=== PATIENT | male | born 1985 | race Caucasian/White ===

== ENCOUNTER 2016-10-27 07:40 | Emergency (ER) | payer BC ==
[2016-10-27 07:44] VITALS: RESP 16
--- NOTE | 2016-10-27 07:59 | EDPHY ---
H & P Stated Complaint: KNOWN L INGUINAL HERNIA, INCREASING PAIN, BRIGHT RED BLOOD IN STOOL Time Seen by Provider: 10/27/16 07:51 HPI/ROS: CHIEF COMPLAINT: Bloody stool. HISTORY OF PRESENT ILLNESS: The patient is a 31 year old male with known left inguinal hernial who presents with bloody stool. Patient was seen at [facility] yesterday for concerns regarding swelling and potential hernia in the left inguinal region. He was advised that he needed to follow up with the primary care physician, obtain an ultrasound, and schedule surgery as needed. Patient was advised that if he developed any significant increase in pain, or bloody stools he should be seen immediately. This morning the patient reports having a bowel movement and noticing blood on the tissue paper afterwards. No vomiting, no generalized abdominal pain, no fever, no diarrhea. Bowel movement was somewhat painful. Patient does have a history of anal fissures. No upper abdominal pain, reflux, or history of upper GI bleeding. No fever, chills, chest pain, shortness of breath, palpitations, vomiting, diarrhea, urinary complaints, headache, lightheadedness. REVIEW OF SYSTEMS: Aside from elements discussed in the HPI, a comprehensive 10-point review of systems was reviewed and is negative. PAST MEDICAL HISTORY: Inguinal hernia. SOCIAL HISTORY: Patient smokes. Newly arrived to [place]. No physician in the area. VITAL SIGNS: Reviewed by me GENERAL: Well-developed, well-nourished, resting comfortably in no respiratory distress. HEENT: Atraumatic. Eyes: No icterus, no injection. Mouth: moist mucous membranes. No erythema or lesions. Neck: supple with no adenopathy. LUNGS: Clear to auscultation bilaterally, no wheezes, rhonchi or rales. CARDIAC: Regular rate and rhythm, no rubs, murmurs or gallops. ABDOMEN: Soft, very mild tenderness in the left inguinal region. No guarding or rebound. Nondistended, bowel sounds normal. : The slight fullness in the left inguinal region appreciated. No definitive hernia palpated. Normal testes. No tenderness or swelling. RECTAL: Small amount of dry blood around the anus. Loose brown stool on the glove. No hemorrhoids. BACK: No CVA tenderness. EXTREMITIES: No trauma. No edema. Range of motion is normal throughout. NEURO: Alert and oriented, grossly nonfocal. SKIN: Warm and dry, no rash. PSYCHIATRIC: Normal mentation, no agitation. Portions of this note were transcribed by a medical payment poster. I personally performed a history, physical exam, medical decision making, and confirmed accuracy of information the transcribed note. - Personal History Current Tetanus/Diphtheria Vaccine: Yes Current Tetanus Diphtheria and Acellular Pertussis (TDAP): Yes - Medical/Surgical History Hx Asthma: No Hx Chronic Respiratory Disease: No Hx Diabetes: No Hx Cardiac Disease: No Hx Renal Disease: No Hx Cirrhosis: No Hx Alcoholism: No Hx HIV/AIDS: No Hx Splenectomy or Spleen Trauma: No Other PMH: PMH- HERNIA - Social History Smoking Status: Current every day smoker Constitutional: Initial Vital Signs Temperature (C) 36.4 C 10/27/16 07:41 Heart Rate 92 10/27/16 07:41 Respiratory Rate 16 10/27/16 07:41 Blood Pressure 143/81 H 10/27/16 07:41 O2 Sat (%) 98 10/27/16 07:41 O2 Delivery Mode Room Air Allergies/Adverse Reactions: Penicillins Allergy (Verified 10/27/16 07:42) Home Medications: Medication Instructions Recorded Hydrocortisone Acetate [Anucort-Hc] 25 mg RC BID PRN #10 supp.rect 10/27/16 Medical Decision Making - Diagnostics Imaging: Results: An ultrasound scan of the abdomen was obtained. The results of the study were reported to me: Inguinal hernia in the left that appears to contain some bowel loop as well as mesentery. This is reducible with pressure by the probe. 2. The neck of the inguinal hernia measures about 5 mm in diameter. The study was read by Dr. West. I discussed the results of the study with the patient. ED Course/Re-evaluation: Stool was sent for occult blood testing. Ultrasound was ordered of the patient' s hernia. Patient's ultrasound demonstrates inguinal hernia with peristalsing bowel present in the hernia. Hernia is easily reducible with the probe. The neck of hernia is 5 mm. Hernia does increase with Valsalva. 10:20 a.m.: I consulted Dr. Patten who will followup with the patient. Patient was given appointment of tomorrow at 2:[address] Taylor Patten. Discussed results of the ultrasound the patient. He will follow up tomorrow as directed. He understands reasons to return including increase in the hernia size, pain, inability to reduce the hernia, vomiting, fevers. We also discussed the patient's heme-positive stools. I see no hemorrhoids or fissures , patient's history does not suggest upper GI hemorrhage. Abdomen is soft and benign. Patient was given Anusol HC suppositories and instructed to follow up with Gastroenterology. Differential Diagnosis: Differential diagnoses for the patient's symptom complex was considered including but not limited to incarcerated hernia, strangulated hernia, inguinal hernia, lower GI bleeding,. - Data Points Laboratory Results: Laboratory Results 10/27/16 07:55 10/27/16 07:55 10/27/16 10/27/16 10/27/16 07:55 07:55 07:55 WBC 6.71 10^3/uL 10^3/uL (3.80-9.50) RBC 5.18 10^6/uL 10^6/uL (4.40-6.38) Hgb 15.8 g/dL g/dL (13.7-17.5) Hct 47.6 % % (40.0-51.0) MCV 91.9 fL fL (81.5-99.8) MCH 30.5 pg pg (27.9-34.1) MCHC 33.2 g/dL g/dL (32.4-36.7) RDW 13.2 % % (11.5-15.2) Plt Count 240 10^3/uL 10^3/uL (150-400) MPV 10.7 fL fL (8.7-11.7) Neut % (Auto) 57.5 % % (39.3-74.2) Lymph % (Auto) 29.8 % % (15.0-45.0) Calhoun % (Auto) 7.5 % % (4.5-13.0) Eos % (Auto) 3.6 % % (0.6-7.6) Baso % (Auto) 1.0 % % (0.3-1.7) Nucleat RBC Rel Count 0.0 % % (0.0-0.2) Absolute Neuts (auto) 3.86 10^3/uL 10^3/uL (1.70-6.50) Absolute Lymphs (auto) 2.00 10^3/uL 10^3/uL (1.00-3.00) Absolute Monos (auto) 0.50 10^3/uL 10^3/uL (0.30-0.80) Absolute Eos (auto) 0.24 10^3/uL 10^3/uL (0.03-0.40) Absolute Basos (auto) 0.07 10^3/uL 10^3/uL (0.02-0.10) Absolute Nucleated RBC 0.00 10^3/uL 10^3/uL (0-0.01) Immature Gran % 0.6 % % (0.0-1.1) Immature Gran # 0.04 10^3/uL 10^3/uL (0.00-0.10) Sodium 145 mEq/L H mEq/L (134-144) Potassium 4.2 mEq/L mEq/L (3.5-5.2) Chloride 108 mEq/L mEq/L (97-110) Carbon Dioxide 27 mEq/l mEq/l (22-31) Anion Gap 10 mEq/L mEq/L (8-16) BUN 16 mg/dL mg/dL (7-23) Creatinine 0.9 mg/dL mg/dL (0.7-1.3) Estimated GFR > 60 Glucose 107 mg/dL H mg/dL (70-100) Calcium 9.6 mg/dL mg/dL (8.5-10.4) Stool Occult Bld Scrn POSITIVE H (NEGATIVE) Medications Given: Discontinued Medications Sodium Chloride (Ns) 1,000 mls @ 0 mls/hr IV ONCE ONE PRN Reason: Wide Open Stop: 10/27/16 08:13 Last Admin: 10/27/16 08:16 Dose: 1,000 mls Departure - Departure Disposition: Home, Routine, Self-Care Clinical Impression: Heme + stool, Rectal bleeding, Left inguinal hernia Condition: Good Instructions: Rectal Bleeding (ED) Additional Instructions: You have been referred to a primary care physician, and a general surgeon. You have an appointment tomorrow to see Dr. Taylor Patten, general surgery, at 2: 45 p.m.. Avoid straining and Valsalva maneuvers. If your hernia increases in size and is not able to be reduced, or he develops severe pain, or vomiting, please seek care urgently. Please use the Anusol suppositories as directed for the rectal bleeding. You have also been given referral to a pattern molder. You may follow up with him if the rectal bleeding continues. Referrals: Ruben Keating MD [Medical Doctor] - As per Instructions Gamaliel Alexander MD [Medical Doctor] - As per Instructions Taylor Patten MD [Medical Doctor] - As per Instructions (2:45 p.m. on October 28, Monday.) Prescriptions: Hydrocortisone Acetate [Anucort-Hc] 25 mg RC BID PRN #10 supp.rect PRN Reason: rectal pain, bleeding Report Scribed for: Dottie Beckett Report Scribed by: Jyoti Freeman Date of Report: 10/27/16 Time of Report: 07:58
[2016-10-27] MEDS ORDERED: NS 1,000 ML IV ONE (08:12)
[2016-10-27 08:25] LABS: % IMMATURE GRANULYOCYTES 0.6 % (0.0-1.1); ABSOLUTE IMMATURE GRANULOCYTES 0.04 10^3/uL (0.00-0.10); ADD DIFF? NO; ADD MORPH? NO; ADD SCAN? NO; ATYPICAL LYMPHOCYTE FLAG 10 (0-99); FRAGMENT RBC FLAG 0 (0-99); HEMATOCRIT 47.6 % (40.0-51.0); HEMOGLOBIN 15.8 g/dL (13.7-17.5); LEFT SHIFT FLG 0 (0-99); LIPEMIA HEMOLYSIS FLAG 80 (0-99); MEAN CELL HEMOGLOBIN 30.5 pg (27.9-34.1); MEAN CELL HEMOGLOBIN CONCENTR. 33.2 g/dL (32.4-36.7); MEAN CELL VOLUME 91.9 fL (81.5-99.8); MEAN PLATELET VOLUME 10.7 fL (8.7-11.7); PLATELET CLUMPS FLAG 20 (0-99); PLATELET COUNT 240 10^3/uL (150-400); RED BLOOD CELL COUNT 5.18 10^6/uL (4.40-6.38); RED CELL DISTRIBUTION WIDTH 13.2 % (11.5-15.2)
[2016-10-27 08:28] LABS: ANION GAP 10 mEq/L (8-16); CALCIUM 9.6 mg/dL (8.5-10.4); CARBON DIOXIDE 27 mEq/l (22-31); CHLORIDE 108 mEq/L (97-110); CREATININE 0.9 mg/dL (0.7-1.3); GLOMERULAR FILTRATION RATE > 60; GLUCOSE 107 mg/dL (70-100); POTASSIUM 4.2 mEq/L (3.5-5.2); SODIUM 145 mEq/L (134-144)
[2016-10-27 10:46] VITALS: BP 114/69; PULSE 65; TEMP 98.4; O2SAT 97
== END 2016-10-27 10:46 | disposition home or self-care (01) ==
DX: K92.1 Melena (principal); K40.90 Unilateral inguinal hernia, without obstruction or gangrene, not specified as recurrent; F17.200 Nicotine dependence, unspecified, uncomplicated

== ENCOUNTER → 2016-12-16 | Outpatient (CLI) | payer BC | LOC: FIMAGING 12:53 | PROVIDERS: ATTEND Surgery | DX: R10.32 Left lower quadrant pain (principal); Z98.890 Other specified postprocedural states ==

== ENCOUNTER 2017-10-19 17:29 | Emergency (ER) | payer BC ==
[2017-10-19 17:39] VITALS: RESP 16; TEMP 98.1
--- NOTE | 2017-10-19 18:53 | EDPHY ---
H & P Stated Complaint: FALL SAT ONTO PROPANE CYLINDER IMPACTING COCCYX AREA/LAC Time Seen by Provider: 10/19/17 18:29 HPI/ROS: CHIEF COMPLAINT: "I fell on a propane cylinder" HISTORY OF PRESENT ILLNESS: The patient is a 32 y/o male complaining of buttock pain secondary to slipping and falling backwards onto a propane cylinder 5 days ago. He describes having two guys slipping and falling on top of him during this event. He has continued to have mild to moderate buttock pain since falling. Pain is aggravated by sitting. He has not taken anything for pain. No other injuries. He did not hit hit head; no YANG or neck pain. No chest/abd pain. - Personal History Current Tetanus/Diphtheria Vaccine: Yes - Medical/Surgical History PMH: Inguinal hernia repair 2017 Hx Asthma: No Hx Chronic Respiratory Disease: No Hx Diabetes: No Hx Cardiac Disease: No Hx Renal Disease: No Hx Cirrhosis: No Hx Alcoholism: No Hx HIV/AIDS: No Hx Splenectomy or Spleen Trauma: No Other PMH: PMH- HERNIA - Social History Smoking Status: Former smoker Additional Social History: Former smoker. Has a son. Employed in [employer] work. - Physical Exam Exam: General Appearance: Alert, pleasant Gastrointestinal: Abdomen is soft and non-tender Back: Ecchymosis and tenderness at the superior aspect of gluteal cleft on the left Neurological: A&O, motor/sensory intact, normal gait Skin: Warm and dry, no laceration/abrasion Extremities: normal inspection, hip ROM normal, pelvis stable Psychiatric: Mood and affect normal Constitutional: Initial Vital Signs Temperature (C) 36.7 C 10/19/17 17:36 Heart Rate 90 10/19/17 17:36 Respiratory Rate 16 10/19/17 17:36 Blood Pressure 134/83 H 10/19/17 17:36 O2 Sat (%) 96 10/19/17 17:36 O2 Delivery Mode Room Air Allergies/Adverse Reactions: Penicillins Allergy (Verified 10/19/17 17:35) Home Medications: Medication Instructions Recorded NK [No Known Home Meds] 10/19/17 Medical Decision Making - Diagnostics Imaging Results: XRay: no fracture Imaging: I viewed and interpreted images myself ED Course/Re-evaluation: This is a healthy 32 y/o male who presents with coccyx pain secondary to a mechanical fall onto a propane cylinder 5 days ago. He has ecchymosis and tenderness to the left of the gluteal cleft on exam. Plan for coccyx x-ray to evaluate for fracture. X-ray is negative for fracture. Coccyx not visualized on Xray, but pain and ecchymosis are in sacral area, not coccyx. Patient will be discharged with standard contusion care instructions and referral to PCP to establish care. Donut advised for sitting. He is comfortable with plan for discharge. Departure - Departure Disposition: Home, Routine, Self-Care Clinical Impression: Sacral contusion Qualifiers: Encounter type: initial encounter Qualified Code(s): S30.0XXA - Contusion of lower back and pelvis, initial encounter Condition: Good Instructions: Coccyx Injury (ED) Additional Instructions: 1. I recommend buying a donut to sit on while you are healing. 2. Use Tylenol and ibuprofen as directed for pain. You can also apply ice intermittently to sore areas. 3. Establish care with a primary care physician. You've been referred to Dr. Chen locally. [facility] is another option. Adult Pain & Fever Control: We recommend Acetaminophen (Tylenol) and Ibuprofen (Motrin,Advil) for pain and fever control. When fever is high or pain severe, both drugs can be used at the same time, but at different intervals. Please note the time differences. Your dose is: Acetaminophen 650mg every 4 to 6 hours Ibuprofen 600mg every 6-8 hours with food Note: do not take Acetaminophen with Hydrocodone (Vicodin, Lortab) or Oxycodone (Percocet). These medications also contain Acetaminophen. No more than 3000mg of Acetaminophen should be taken in 24 hours (for an adult). Referrals: Lonnie Chen MD [[facility] Primary Care Provider] - As per Instructions [facility],. [Clinic] - As per Instructions Stand Alone Forms: Work Excuse Report Scribed for: Rubina Epstein Report Scribed by: Elena Jason Date of Report: 10/19/17 Time of Report: 18:53 Physician Review and Approval Statement: 10/19/17 18:53 Portions of this note were transcribed by a internist medical doctor md. I personally performed a history, physical exam, medical decision making, and confirmed accuracy of information the transcribed note.
[2017-10-19 19:53] VITALS: BP 131/80; PULSE 92; O2SAT 97
== END 2017-10-19 19:51 | disposition home or self-care (01) ==
DX: S30.0XXA Contusion of lower back and pelvis, initial encounter (principal); Z87.891 Personal history of nicotine dependence; W01.0XXA Fall on same level from slipping, tripping and stumbling without subsequent striking against object, initial encounter